=== PATIENT | female | born 1950 | race Caucasian/White ===

== ENCOUNTER 2017-11-18 09:49 | Inpatient (IN) ==
[2017-11-18] MEDS ORDERED: Isovue-370 500 ML INFUS..BTL IV ONE (10:16)
[2017-11-18] MEDS ORDERED: Furosemide 20 MG/2 ML VIAL IVP ONE ×2 (10:17→11:05)
--- NOTE | 2017-11-18 10:22 | Emergency Department Note ---
Disposition Clinical Impression: Pulmonary embolism Qualifiers: Pulmonary embolism type: other Chronicity: acute Acute cor pulmonale presence: without acute cor pulmonale Qualified Code(s): I26.99 - Other pulmonary embolism without acute cor pulmonale Disposition: Admitted As Inpatient Condition: Serious Referrals: Opal Bolden MD [Primary Care Provider] - Forms: ED Satisfaction Letter SOB HPI - General Chief Complaint: ED Shortness of Breath/Dyspnea Stated Complaint: SEB/BLE edema Time Seen by Provider: 11/18/17 09:55 Source: patient, EMS Mode of arrival: EMS Limitations: no limitations Nursing Notes Reviewed: Yes Vital Signs Reviewed: Yes - History of Present Illness Pt Subjective Complaint: shortness of breath Onset (ago): day(s) (yesterday) Severity: moderate Consistency/Duration: intermittent Improves with: rest Worsens with: exertion Known history of: PE, DVT Associated symptoms: Reports: cough (occasional, dry). Denies: chest pain, pain with inspiration, fever, wheezing, sputum production, orthopnea, lower extremity pain, polyuria, polydipsia, parasthesias, palpitations, hemoptysis, diaphoresis, nausea/vomiting, syncope, abdominal pain, rash, sense of impending doom Treatment prior to arrival: none Cough present: Yes Cough Description: Involuntary, Non-Productive, Dry Cough Frequency: Intermittent Sputum production: No Sputum Amount: None - Related Data Home oxygen amount: none Home Medications Medication Instructions Recorded Confirmed traZODone [TraZODone] 50 mg PO HS 07/24/15 12/23/16 Furosemide [Lasix] 40 mg PO DAILY 08/16/15 12/23/16 Potassium Chloride [K-Tab ER] 20 meq PO BID 11/14/15 12/23/16 Albuterol Sulfate [Albuterol 1 puff IH PRN PRN 02/14/16 12/23/16 Inhaler] Ranitidine HCl 150 mg PO DAILY 05/13/16 12/23/16 Aspirin Enteric Coated [Aspirin EC] 81 mg PO DAILY 06/24/16 12/23/16 Biotin 3 mg PO DAILY 11/18/17 11/18/17 Glucosamine Sulfate Dipot Chlr 2,000 mg PO DAILY 11/18/17 11/18/17 [Glucosamine] Losartan Potassium [Cozaar] 100 mg PO DAILY 11/18/17 11/18/17 Magnesium Oxide [Magnesium] 400 mg PO DAILY 11/18/17 11/18/17 Meloxicam [Meloxicam] 7.5 mg PO DAILY 11/18/17 11/18/17 Multivitamin [One Daily Essential] 1 tab PO DAILY 11/18/17 11/18/17 Tramadol HCl [Ultram] 50 mg PO HS PRN 11/18/17 11/18/17 Allergies Allergy/AdvReac Type Severity Reaction Status Date / Time lisinopril Allergy Unknown Cough Verified 11/18/17 11:28 codeine Allergy Hallucinati Verified 11/18/17 11:28 ng Penicillins Allergy Hallucinati Verified 11/18/17 11:28 ng amlodipine AdvReac See Verified 11/18/17 11:28 Comments All systems ED: reviewed and negative except as stated. Review of Systems: As Per HPI Constitutional: Denies: fever, chills, weakness Cardiovascular: Reports: dyspnea on exertion, orthopnea. Denies: chest pain, palpitations, edema, syncope Respiratory: Reports: as per HPI, cough. Denies: dyspnea, wheezes, hemoptysis, stridor, sputum production Gastrointestinal: Denies: abdominal pain, nausea, vomiting, diarrhea Genitourinary: Denies: urgency, dysuria, frequency, hematuria Musculoskeletal: Denies: back pain, neck pain, joint swelling, arthralgia, myalgia Integumentary: Denies: rash Neurological: Denies: headache, weakness, confusion Hematological/Lymphatic: Denies: easy bleeding, easy bruising, lymphadenopathy Past Medical History - Past Medical History Attestation: Yes The following information was validated with the patient. Source: patient Medical history: Reports: cancer, CHF, DVT, GERD, hypertension, pulmonary embolus, other Surgical history: Reports: hysterectomy Psychiatric history: Reports: no psych history DIE ENGRAVER history: Reports: no DIE ENGRAVER history - Social History Smoking Status: Never smoker Smokeless Tobacco Status: No Alcohol use: Reports: none Drug use: Reports: none Physical Exam - General Limitations: no limitations General appearance: alert, in no apparent distress - Head Head exam: atraumatic, normocephalic, normal inspection - Eye Eye exam: Present: normal appearance, PERRL. Absent: scleral icterus, conjunctival injection, periorbital swelling - ENT ENT exam: normal oropharynx, mucous membranes moist - Neck Neck exam: Present: normal inspection, full ROM, trachea midline. Absent: tenderness, meningismus, lymphadenopathy - Chest Chest inspection: Present: normal inspection, symmetric chest wall rise. Absent : tenderness - Respiratory Respiratory exam: Present: normal lung sounds bilaterally. Absent: respiratory distress, wheezes, stridor, accessory muscle use - Cardiovascular Cardiovascular exam: Present: regular rate, normal rhythm. Absent: systolic murmur, diastolic murmur - Extremities Exam Extremities exam: Present: normal capillary refill, pedal edema (2+ non- pitting. Bilat feet to mid mg.). Absent: tenderness, calf tenderness - Back Exam Back exam: Present: normal inspection, full ROM. Absent: tenderness - Neurological Exam Neurological exam: Present: alert, oriented X3, CN II-XII intact, normal gait - Psychiatric Psychiatric exam: Present: normal affect, normal mood - Skin Skin exam: Present: warm, dry, intact, normal color Course Course Narrative: Patient presents for evaluation of dyspnea on exertion. She describes feeling very short of breath with simple tasks such as getting dressed. This started yesterday and has gotten progressively worse. She denies fever, chills, nausea , vomiting. She denies pain, palpitations, syncope, dizziness, vertigo, hemoptysis. She has had an occasional dry cough. She has a history of COPD, coronary artery disease, CHF, she has a pacemaker and she had a PE and right upper extremity DVT last year. She was seen by [facility] and had a battery of tests done. No cause for the blood clots was identified, so the Xarelto was discontinued about six months ago. On exam, patient appears mildly anxious. She is tachypnea, afebrile with normal blood pressure, normal pulse. She is satting 96% on 2 L by nasal cannula. Breath sounds are clear bilaterally. Heart rate and rhythm are regular. I do not hear murmur. She has symmetric lower extremity nonpitting edema with faint erythema to the right lower leg and ankle. It is nontender. She has no calf pain, swelling, erythema or tenderness bilaterally. EKG, labs and CT have been ordered given the patient's previous history of PE. EKG shows a paced rhythm with normal rate. No significant change compared to previous. Chest x-ray was read by the radiologist as no acute abnormality. Labs show an elevated troponin at 0.06. She has had an elevated troponin in the past - as high as 0.06. Creatinine is normal. Glucose is mildly elevated. CBC is normal. Coags are normal. CTA is pending - Reevaluation(s) Reevaluation #1: Patient ambulated to and from rest room. Feels short of breath and "wants a breathing treatment". This has been ordered. Cr resulted now and is normal. Additional Lasix ordered. Still no pain. Waiting for CTA. Suspect CHF or PE. Less likely pneumonia or COPD - no wheezing Time: 11:26 - Consultations Consultation #1: Case discussed with Dr. Ha, radiologist. Patient has bilateral pulmonary emboli. Heparin has been ordered. Case discussed with Dr. Novoa she has had [id number] time with the patient and agrees with the assessment and plan. Time: 12:27 Consultation #2: Case discussed with Dr. Espinal, the hospitalist. She requests that the clay processing labourer be contacted for consult. The clay processing labourer has been paged. Time: 12:49 Vital Signs Temperature 97.1 F L 11/18/17 09:53 Pulse Rate 89 11/18/17 09:53 Respiratory Rate 18 11/18/17 09:53 Blood Pressure 151/81 11/18/17 09:53 O2 Sat by Pulse Oximetry 96 11/18/17 09:53 Temperature 97.1 F L 11/18/17 09:53 Pulse Rate 89 11/18/17 09:53 Respiratory Rate 18 11/18/17 09:53 Blood Pressure 151/81 11/18/17 09:53 O2 Sat by Pulse Oximetry 96 11/18/17 09:53 Oxygen Delivery Oxygen Delivery Nasal Cannula Shortness of Breath/Dyspnea - Medical Records Medical records reviewed: Yes I reviewed the patient's medical records. - Lab Data Lab results reviewed: Yes I reviewed the patient's lab results. Lab results narrative: Laboratory Last Values WBC 8.9 K/mcL (4.3-11.1) 11/18/17 10:16 RBC 4.79 M/mcL (3.82-4.97) 11/18/17 10:16 Hgb 14.7 g/dL (11.5-15.4) 11/18/17 10:16 Hct 45.7 % (35.3-44.9) H 11/18/17 10:16 MCV 95.4 fL (83.0-100.0) 11/18/17 10:16 MCH 30.7 pg (28.0-33.3) 11/18/17 10:16 MCHC 32.2 g/dL (31.6-35.5) 11/18/17 10:16 RDW 13.6 % (11.5-14.5) 11/18/17 10:16 Plt Count 206 K/mcL (140-400) 11/18/17 10:16 MPV 10.6 fL (9.4-12.4) 11/18/17 10:16 Immature Gran % 0.3 % (0-4) 11/18/17 10:16 Seg Neutrophils % 73.3 % 11/18/17 10:16 Lymphocytes % 17.7 % 11/18/17 10:16 Monocytes % 7.7 % 11/18/17 10:16 Eosinophils % 0.7 % 11/18/17 10:16 Basophils % 0.3 % 11/18/17 10:16 Neutrophils # 6.5 K/mcL (1.6-8.9) 11/18/17 10:16 Lymphocytes # 1.6 K/mcL (0.6-4.6) 11/18/17 10:16 Monocytes # 0.7 K/mcL (0.0-1.3) 11/18/17 10:16 Eosinophils # 0.1 K/mcL (0.0-0.6) 11/18/17 10:16 Basophils # 0.0 K/mcL (0.0-0.2) 11/18/17 10:16 Sodium 142 mEq/L (136-145) 11/18/17 10:16 Potassium 4.5 mEq/L (3.5-5.1) 11/18/17 10:16 Chloride 105 mEq/L (98-107) 11/18/17 10:16 Carbon Dioxide 27 mEq/L (23-29) 11/18/17 10:16 BUN 20 mg/dL (8-23) 11/18/17 10:16 Creatinine 0.71 mg/dL (0.60-1.20) 11/18/17 10:16 Est GFR ( Amer) > 60 (> 60) 11/18/17 10:16 Est GFR (Non-Af Amer) > 60 (> 60) 11/18/17 10:16 BUN/Creatinine Ratio 28 (6-26) H 11/18/17 10:16 Glucose 115 mg/dL (70-105) H 11/18/17 10:16 Calculated Osmolality 298 (280-300) 11/18/17 10:16 Calcium 9.1 mg/dL (8.6-10.3) 11/18/17 10:16 Total Bilirubin 0.5 mg/dL (0.3-1.0) 11/18/17 10:16 Direct Bilirubin 0.1 mg/dL (0.0-0.2) 11/18/17 10:16 Indirect Bilirubin 0.4 mg/dL (0.0-1.2) 11/18/17 10:16 AST 14 Units/L (13-39) 11/18/17 10:16 ALT 11 Units/L (7-52) 11/18/17 10:16 Alkaline Phosphatase 97 Units/L (34-104) 11/18/17 10:16 Troponin I 0.06 ng/mL (< 0.04) H* 11/18/17 10:16 B-Natriuretic Peptide 217 pg/mL (Less than 100) H 11/18/17 10:16 Serum Total Protein 7.2 g/dL (6.4-8.9) 11/18/17 10:16 Albumin 4.1 g/dL (3.5-5.7) 11/18/17 10:16 Globulin 3.1 g/dL (2.4-3.5) 11/18/17 10:16 Albumin/Globulin Ratio 1.3 (1.1-2.2) 11/18/17 10:16 Result diagrams: 11/18/17 10:16 11/18/17 10:16 Lab Results 11/18/17 11/18/17 11/18/17 Range/Units 10:16 10:16 10:16 WBC 8.9 (4.3-11.1) K/mcL RBC 4.79 (3.82-4.97) M/mcL Hgb 14.7 (11.5-15.4) g/dL Hct 45.7 H (35.3-44.9) % MCV 95.4 (83.0-100.0) fL MCH 30.7 (28.0-33.3) pg MCHC 32.2 (31.6-35.5) g/dL RDW 13.6 (11.5-14.5) % Plt Count 206 (140-400) K/mcL MPV 10.6 (9.4-12.4) fL Immature Gran % 0.3 (0-4) % Seg Neutrophils % 73.3 % Lymphocytes % 17.7 % Monocytes % 7.7 % Eosinophils % 0.7 % Basophils % 0.3 % Neutrophils # 6.5 (1.6-8.9) K/mcL Lymphocytes # 1.6 (0.6-4.6) K/mcL Monocytes # 0.7 (0.0-1.3) K/mcL Eosinophils # 0.1 (0.0-0.6) K/mcL Basophils # 0.0 (0.0-0.2) K/mcL Sodium 142 (136-145) mEq/L Potassium 4.5 (3.5-5.1) mEq/L Chloride 105 (98-107) mEq/L Carbon Dioxide 27 (23-29) mEq/L BUN 20 (8-23) mg/dL Creatinine 0.71 (0.60-1.20) mg/dL Est GFR ( Amer) > 60 (> 60) Est GFR (Non-Af Amer) > 60 (> 60) BUN/Creatinine Ratio 28 H (6-26) Glucose 115 H (70-105) mg/dL Calculated Osmolality 298 (280-300) Calcium 9.1 (8.6-10.3) mg/dL Total Bilirubin 0.5 (0.3-1.0) mg/dL Direct Bilirubin 0.1 (0.0-0.2) mg/dL Indirect Bilirubin 0.4 (0.0-1.2) mg/dL AST 14 (13-39) Units/L ALT 11 (7-52) Units/L Alkaline Phosphatase 97 (34-104) Units/L Troponin I 0.06 H* (< 0.04) ng/mL B-Natriuretic Peptide 217 H (Less than 100) pg/mL Serum Total Protein 7.2 (6.4-8.9) g/dL Albumin 4.1 (3.5-5.7) g/dL Globulin 3.1 (2.4-3.5) g/dL Albumin/Globulin Ratio 1.3 (1.1-2.2) - Radiology Data Radiology results reviewed: Yes I reviewed the patient's radiology results. Chest X-Ray 11/18/17 10:08 IMPRESSION: No evidence of acute cardiopulmonary disease. D/ / Harsha Padron MD / Harsha Padron MD Interpreting Provider: Harsha Padron MD Chest CTA 11/18/17 10:16 IMPRESSION: Bilateral pulmonary emboli with evidence for right ventricular strain. Findings were discussed with Jacklyn Garcia at 12:25 pm on 11/18/2017. D/ / Kristian Rojas MD / Kristian Rojas MD Interpreting Provider: Kristian Rojas MD - EKG Data EKG attestation: Yes I reviewed and interpreted this EKG. EKG results narrative: Paced rhythm, normal rate. Rate: Reports: normal Critical Care Time Critical Care Time: Yes Total Critical Care Time: 30 Attestation: Patient experienced dyspnea and dyspnea on exertion. She was tachypneic and hypoxic with minimal exertion. EKG shows a paced rhythm. IV access was obtained. CTA was performed patient has bilateral pulmonary emboli. Heparin drip was started. Pulmonology was consulted. Patient accepted by the hospitalist to the stepdown floor.
[2017-11-18 10:27] LABS: Basophils % 0.3 %; Eosinophils # 0.1 K/mcL (0.0-0.6); Eosinophils % 0.7 %; Hematocrit 45.7 % (35.3-44.9); Hemoglobin 14.7 g/dL (11.5-15.4); Immature Granulocytes % 0.3 % (0-4); Lymphocytes # 1.6 K/mcL (0.6-4.6); Lymphocytes % 17.7 %; Mean Corpuscular HGB Conc 32.2 g/dL (31.6-35.5); Mean Corpuscular Hemoglobin 30.7 pg (28.0-33.3); Mean Corpuscular Volume 95.4 fL (83.0-100.0); Mean Platelet Volume 10.6 fL (9.4-12.4); Monocytes # 0.7 K/mcL (0.0-1.3); Monocytes % 7.7 %; Neutrophils # 6.5 K/mcL (1.6-8.9); Platelet Count 206 K/mcL (140-400); Red Blood Count 4.79 M/mcL (3.82-4.97); Red Cell Distribution Width 13.6 % (11.5-14.5); Segmented Neutrophils % 73.3 %
[2017-11-18 10:53] LABS: Alanine Aminotransferase 11 Units/L (7-52); Albumin 4.1 g/dL (3.5-5.7); Albumin/Globulin Ratio 1.3 (1.1-2.2); Alkaline Phosphatase 97 Units/L (34-104); Aspartate Amino Transferase 14 Units/L (13-39); BUN/Creatinine Ratio 28 (6-26); Bilirubin,Direct 0.1 mg/dL (0.0-0.2); Bilirubin,Indirect 0.4 mg/dL (0.0-1.2); Bilirubin,Total 0.5 mg/dL (0.3-1.0); Blood Urea Nitrogen 20 mg/dL (8-23); Calcium 9.1 mg/dL (8.6-10.3); Carbon Dioxide 27 mEq/L (23-29); Chloride 105 mEq/L (98-107); Globulin 3.1 g/dL (2.4-3.5); Glucose 115 mg/dL (70-105); Osmolality,Calculated 298 (280-300); Potassium 4.5 mEq/L (3.5-5.1); Sodium 142 mEq/L (136-145); Total Protein 7.2 g/dL (6.4-8.9); eGFR For African Americans > 60 (> 60); eGFR For Non-African Americans > 60 (> 60)
[2017-11-18 10:55] LABS: Troponin I 0.06 ng/mL (< 0.04)
[2017-11-18] MEDS ORDERED: Aspirin 325 MG TABLET PO ONE (11:05)
[2017-11-18] MEDS ORDERED: Ipratropium/Albuterol Neb 3 ML IH ONE (11:05)
[2017-11-18] MEDS ORDERED: *HR* Heparin 5,000 UNIT/ML VIAL IVP ONE (12:25)
[2017-11-18] MEDS ORDERED: *HR* Heparin 5,000 UNIT/ML VIAL IVP PRN ×2 (12:25)
--- NOTE | 2017-11-18 12:31 | Electrocardiograph Report ---
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
--- NOTE | 2017-11-18 12:52 | Emergency Department Note ---
Disposition Clinical Impression: Pulmonary embolism Qualifiers: Pulmonary embolism type: other Chronicity: acute Acute cor pulmonale presence: without acute cor pulmonale Qualified Code(s): I26.99 - Other pulmonary embolism without acute cor pulmonale Disposition: Admitted As Inpatient Condition: Fair Referrals: Opal Bolden MD [Primary Care Provider] - Forms: ED Satisfaction Letter General Adult HPI - General Chief complaint: ED Shortness of Breath/Dyspnea Stated complaint: SEB/BLE edema Time Seen by Provider: 11/18/17 09:55 Source: patient, EMS Mode of arrival: EMS Limitations: no limitations - History of Present Illness Pain Scale: 0 - Related Data Home Medications Medication Instructions Recorded Confirmed traZODone [TraZODone] 50 mg PO HS 07/24/15 11/18/17 Furosemide [Lasix] 40 mg PO DAILY PRN 08/16/15 11/18/17 Potassium Chloride [K-Tab ER] 20 meq PO BID PRN 11/14/15 11/18/17 Albuterol Sulfate [Albuterol 1 puff IH PRN PRN 02/14/16 11/18/17 Inhaler] Ranitidine HCl [Acid Death Claim Clerk] 150 mg PO DAILY 05/13/16 11/18/17 Aspirin Enteric Coated [Aspirin EC] 81 mg PO DAILY 06/24/16 11/18/17 Biotin 3 mg PO DAILY 11/18/17 11/18/17 Glucosamine Sulfate Dipot Chlr 2,000 mg PO DAILY 11/18/17 11/18/17 [Glucosamine] Losartan Potassium [Cozaar] 100 mg PO DAILY 11/18/17 11/18/17 Magnesium Oxide [Magnesium] 400 mg PO DAILY 11/18/17 11/18/17 Meloxicam [Meloxicam] 7.5 mg PO DAILY 11/18/17 11/18/17 Multivitamin [One Daily Essential] 1 tab PO DAILY 11/18/17 11/18/17 Tramadol HCl [Ultram] 50 mg PO HS PRN 11/18/17 11/18/17 Allergies Allergy/AdvReac Type Severity Reaction Status Date / Time lisinopril Allergy Unknown Cough Verified 11/18/17 11:28 codeine Allergy Hallucinati Verified 11/18/17 11:28 ng Penicillins Allergy Hallucinati Verified 11/18/17 11:28 ng amlodipine AdvReac See Verified 11/18/17 11:28 Comments Constitutional: Denies: fever, chills, weakness Cardiovascular: Reports: dyspnea on exertion, orthopnea. Denies: chest pain, palpitations, edema, syncope Respiratory: Reports: as per HPI, cough. Denies: dyspnea, wheezes, hemoptysis, stridor, sputum production Gastrointestinal: Denies: abdominal pain, nausea, vomiting, diarrhea Genitourinary: Denies: urgency, dysuria, frequency, hematuria Musculoskeletal: Denies: back pain, neck pain, joint swelling, arthralgia, myalgia Integumentary: Denies: rash Neurological: Denies: headache, weakness, confusion Hematological/Lymphatic: Denies: easy bleeding, easy bruising, lymphadenopathy Past Medical History - Past Medical History Medical history: Reports: cancer, CHF, DVT, GERD, hypertension, pulmonary embolus, other Surgical history: Reports: hysterectomy Psychiatric history: Reports: no psych history OPTICAL EFFECTS LAYOUT PERSON history: Reports: no OPTICAL EFFECTS LAYOUT PERSON history - Social History Smoking Status: Never smoker Smokeless Tobacco Status: No Alcohol use: Reports: none Drug use: Reports: none Physical Exam - General Limitations: no limitations General appearance: alert, in no apparent distress Course Vital Signs Temperature 97.1 F L 11/18/17 09:53 Pulse Rate 89 11/18/17 09:53 Respiratory Rate 18 11/18/17 09:53 Blood Pressure 151/81 11/18/17 09:53 O2 Sat by Pulse Oximetry 96 11/18/17 09:53 Temperature 97.1 F L 11/18/17 09:53 Pulse Rate 89 11/18/17 09:53 Respiratory Rate 18 11/18/17 09:53 Blood Pressure 151/81 11/18/17 09:53 O2 Sat by Pulse Oximetry 96 11/18/17 09:53 Oxygen Delivery Oxygen Delivery Nasal Cannula Medical Decision Making - Lab Data Result diagrams: 11/18/17 10:16 11/18/17 10:16 Lab Results 11/18/17 11/18/17 11/18/17 Range/Units 10:16 10:16 10:16 WBC 8.9 (4.3-11.1) K/mcL RBC 4.79 (3.82-4.97) M/mcL Hgb 14.7 (11.5-15.4) g/dL Hct 45.7 H (35.3-44.9) % MCV 95.4 (83.0-100.0) fL MCH 30.7 (28.0-33.3) pg MCHC 32.2 (31.6-35.5) g/dL RDW 13.6 (11.5-14.5) % Plt Count 206 (140-400) K/mcL MPV 10.6 (9.4-12.4) fL Immature Gran % 0.3 (0-4) % Seg Neutrophils % 73.3 % Lymphocytes % 17.7 % Monocytes % 7.7 % Eosinophils % 0.7 % Basophils % 0.3 % Neutrophils # 6.5 (1.6-8.9) K/mcL Lymphocytes # 1.6 (0.6-4.6) K/mcL Monocytes # 0.7 (0.0-1.3) K/mcL Eosinophils # 0.1 (0.0-0.6) K/mcL Basophils # 0.0 (0.0-0.2) K/mcL Sodium 142 (136-145) mEq/L Potassium 4.5 (3.5-5.1) mEq/L Chloride 105 (98-107) mEq/L Carbon Dioxide 27 (23-29) mEq/L BUN 20 (8-23) mg/dL Creatinine 0.71 (0.60-1.20) mg/dL Est GFR ( Amer) > 60 (> 60) Est GFR (Non-Af Amer) > 60 (> 60) BUN/Creatinine Ratio 28 H (6-26) Glucose 115 H (70-105) mg/dL Calculated Osmolality 298 (280-300) Calcium 9.1 (8.6-10.3) mg/dL Total Bilirubin 0.5 (0.3-1.0) mg/dL Direct Bilirubin 0.1 (0.0-0.2) mg/dL Indirect Bilirubin 0.4 (0.0-1.2) mg/dL AST 14 (13-39) Units/L ALT 11 (7-52) Units/L Alkaline Phosphatase 97 (34-104) Units/L Troponin I 0.06 H* (< 0.04) ng/mL B-Natriuretic Peptide 217 H (Less than 100) pg/mL Serum Total Protein 7.2 (6.4-8.9) g/dL Albumin 4.1 (3.5-5.7) g/dL Globulin 3.1 (2.4-3.5) g/dL Albumin/Globulin Ratio 1.3 (1.1-2.2) Attestation Statement - Attestation Attestation: I examined this patient and my medical decision-making was reviewed with the Resident Physician. I agree with the documented findings, disposition and treatment plan as described except to the extent set forth below. 67 year old female prsents eto the ED with history of PEs and has been recently taken off her xarelto therapy. PRsents today with S1Q3T3 in addition to dyspnea without hypoxia. It appears she has biltaeral PEs again with right heart strain. WE will admit to medicine
--- NOTE | 2017-11-18 13:00 | Pulmonology Consult Note ---
Date of Encounter: 11/18/17 Time of Encounter: 13:00 Assessment and Plan (1) Acute pulmonary embolism Current Visit: Yes Status: Acute Impression: In conclusion this is a 67-year-old woman with a past medical history of uterine cancer and the venous thromboembolism. She also has been diagnosed with heart failure with preserved ejection fraction. She presents with the progressive dyspnea found to have bilateral pulmonary emboli. I reviewed her CT scan findings which is notable for extensive clot burden with enlarged right ventricle on CT imaging. Although this is concerning for acute cor pulmonale the patient is hemodynamically stable and only requiring low amounts of FiO2 support via nasal cannula. She does have a very modestly elevated troponin; and elevated BNP although this is been noted on prior admissions. Her PESI score is >125 which puts her at a high risk group for mortality and will need close monitoring on the inpatient medicine service given potential risk for further decompensation it is reasonable and safe for further monitoring on the stepdown unit overnight and if stabilized can be transferred to the general medical floor with telemetry subsequently. Overall category would be submassive PE hemodynamically stable no indication for thrombolysis pending echo evaluation. Recs: Wean FiO2 to keep oxygen saturation around 92-94%. Although clinically stable at this time I would caution that if worsening hypoxemia the use of positive airway pressure in this situation can precipitate further decrease in preload and right heart strain recommend high flow oxygen as an alternative Agree with high intensity heparin infusion for acute pulmonary embolus. I will defer to the primary medicine service/pharmacy for monitoring of therapeutic indices Trend troponin every 6 hours Obtain 2D ECHO to further characterize right heart strain. Given hemodynamic stability no indication for systemic thrombolytic. She could potentially be a candidate for catheter directed thrombolysis if significant evidence of right heart strain on echocardiogram. However patient would have to be transferred to a tertiary referrals Center for consideration of this clinically I do not think that this will be necessary based upon her stability at this time. I would avoid overly aggressive diuresis or volume resuscitation at this time. Goal volume status should be even the slightly net negative that is no more than -500 mL. I suspect by tomorrow we can increase her diuretic dosing to help with hydrostatic pulmonary edema from known heart failure with preserved ejection fraction Avoid niya blocking agents acutely if any evidence of tachycardia Recommend obtaining ultrasound of the bilateral lower extremities to evaluate for DVT. Although this would not change current management if patient decompensates further IVC filter could be considered to avoid submassive PE transition to massive PE if DVT present I will defer to oncology regarding final recommendations for anticoagulation but she has done well on Xarelto in the past and can likely be transitioned to this oral anticoagulant upon discharge. Formal consultation with oncology is warranted Given chronicity and multiple recurrence of venous thromboembolism I recommend lifelong anticoagulation would defer to oncology for final recommendations. Thank you for this consultation pulmonary will continue to follow Qualifiers: Pulmonary embolism type: other Acute cor pulmonale presence: without acute cor pulmonale Qualified Code(s): I26.99 - Other pulmonary embolism without acute cor pulmonale (2) Acute respiratory failure with hypoxia Current Visit: Yes Status: Acute (3) (HFpEF) heart failure with preserved ejection fraction Current Visit: Yes Status: Acute History of Present Illness Consult date: 11/18/17 Requesting physician: Jacklyn Garcia Reason for consult: pulmonary embolism Chief complaint: Difficulty in Breathing History of present illness: The patient is a very pleasant 67-year-old woman with a past medical history of venous thromboembolism including pulmonary embolus and deep vein thrombosis of the upper extremity. She also has a history of congestive heart failure she has a pacemaker for bradycardia and a remote history of uterine cancer. She denies any history of respiratory diseases and is a lifelong nonsmoker. She presented to the emergency department today for worsening shortness of breath. She states that over the last 2 days she has been increasingly dyspneic with any modest activity. Infection was so worried about her breathing and felt so dyspneic that she she was afraid to lay down to go to sleep. She is also noticed some increasing lower extremity edema but she states that really this has not been too much different than her baseline. No recent history of immobilization or travel. She denies hemoptysis. She is not currently taking any anticoagulation it was stopped by her institutional research coordinator after an extensive workup for thrombophilia.. She denies syncope nausea vomiting diarrhea abdominal pain bleeding or chest pain. In the emergency department the patient was noted to be hypoxic she was paced rhythm but some features consistent with a classic [id number] ECG findings prompting a CTA which was positive for bilateral PEs she is currently on heparin infusion. She is hemodynamically stable but had CTA findings suggestive of right heart strain. She is being admitted to the medicine service and the admitting hospitalist recommended my consultation for further management of acute pulmonary embolus with concern for right heart strain. She is currently hemodynamically stable with saturation in the high 90s on 3 L nasal cannula and is otherwise in no respiratory distress Past Med Surg Social Fam HX - Past Medical History Medical history: cancer, CHF, DVT, GERD, hypertension, pulmonary embolus, other Psychiatric history: no psych history - Past Surgical History Surgical History: hysterectomy - Social History Smoking Status: Never smoker Smokeless Tobacco Status: No Alcohol use: none Drug use: none - Family History Mother Living Status: Still Living Hx Family Cardiac Disorders: Yes (A-Fib, Pacemaker) Father Living Status: Hx Family Cardiac Disorders: No Hx Family Respiratory Disorders: Yes Hx Family Cancer: Yes Hx Family Endocrine Disorder: Yes Medications and Allergies traZODone [TraZODone] 50 mg PO HS 07/24/15 [History] Furosemide [Lasix] 40 mg PO DAILY PRN 08/16/15 [History] Potassium Chloride [K-Tab ER] 20 meq PO BID PRN 11/14/15 [History] Albuterol Sulfate [Albuterol Inhaler] 1 puff IH PRN PRN 02/14/16 [History] Ranitidine HCl [Acid Burr Sander] 150 mg PO DAILY 05/13/16 [History] Aspirin Enteric Coated [Aspirin EC] 81 mg PO DAILY 06/24/16 [History] Biotin 3 mg PO DAILY 11/18/17 [History] Glucosamine Sulfate Dipot Chlr [Glucosamine] 2,000 mg PO DAILY 11/18/17 [History ] Losartan Potassium [Cozaar] 100 mg PO DAILY 11/18/17 [History] Magnesium Oxide [Magnesium] 400 mg PO DAILY 11/18/17 [History] Meloxicam [Meloxicam] 7.5 mg PO DAILY 11/18/17 [History] Multivitamin [One Daily Essential] 1 tab PO DAILY 11/18/17 [History] Tramadol HCl [Ultram] 50 mg PO HS PRN 11/18/17 [History] 3 Allergy/AdvReac Type Severity Reaction Status Date / Time lisinopril Allergy Unknown Cough Verified 11/18/17 11:28 codeine Allergy Hallucinati Verified 11/18/17 11:28 ng Penicillins Allergy Hallucinati Verified 11/18/17 11:28 ng amlodipine AdvReac See Verified 11/18/17 11:28 Comments All Systems: The remainder of the systems were reviewed and are negative Physical Examination Vital Signs: Vital Signs, Last 4 Hours Temp Pulse Resp BP Pulse Ox 11/18/17 09:53 97.1 F L 89 18 151/81 96 General appearance: no acute distress Eyes: nonicteric ENT: oropharynx moist Effort: mildly labored Auscultation: bilateral: rales Cardiovascular: regular rate and rhythm Gastrointestinal: normoactive bowel sounds, soft, non-tender Integumentary: normal Extremities: no cyanosis, no edema, no clubbing Musculoskeletal: no deformities normal mental status, non-focal exam mood appropriate Results - Laboratory Findings CBC and BMP: 11/18/17 10:16 11/18/17 10:16 Abnormal lab findings: Abnormal lab results Hct 45.7 % (35.3-44.9) H 11/18/17 10:16 BUN/Creatinine Ratio 28 (6-26) H 11/18/17 10:16 Glucose 115 mg/dL (70-105) H 11/18/17 10:16 Troponin I 0.06 ng/mL (< 0.04) H* 11/18/17 10:16 B-Natriuretic Peptide 217 pg/mL (Less than 100) H 11/18/17 10:16 - Diagnostic Findings Chest x-ray: report reviewed, image reviewed CT scan - chest: report reviewed, image reviewed - Clinical Findings Intake & Output: Intake & Output 11/17/17 11/18/17 11/18/17 23:59 07:59 15:59 Weight 136.078 kg Consult Discharge Plan - Plan Referrals: Opal Bolden MD [Primary Care Provider] -
[2017-11-18 13:22] LABS: INR 1.1; Prothrombin Time 12.3 Seconds (9.4-12.1)
[2017-11-18 13:25] LABS: Activated Partial Thrombo Time 28.1 Seconds (26.0-36.0)
[2017-11-18] MEDS ORDERED: traMADol 50 MG TABLET PO PRN ×2 (13:55→13:57)
[2017-11-18] MEDS ORDERED: Naloxone 0.4 MG/ML INJ IVP PRN (13:57)
[2017-11-18] MEDS ORDERED: Acetaminophen 325 MG TABLET PO PRN (13:57)
[2017-11-18] MEDS: Heparin 25,000 UNIT/500 ML D5W 25,000 UNIT/500 ML BAG IVC SCH (13:59)
--- NOTE | 2017-11-18 14:13 | Internal Med History&Physical ---
<Abigail Watkins - Last Filed: 11/18/17 14:06> Date of Encounter: 11/18/17 Time of Encounter: 14:06 Internal Medicine - H&P: HPI Admitted From: Home Plans for Post Hospital Care: Home History of present illness: Ms. Cai is a 67 year old female 's past medical history of VT/PE, uterine cancer, bradycardia status post pacemaker placement, CHF, and hypertension presented to the ED with 2 days of worsening shortness of breath. She reported in past 2 days, she experienced progressive shortness of breath, she denies any associated chest pain, cough, hematemesis, or palpitation. He also noticed bilateral leg swelling but she also said she has chronic lymphedema on both legs. She does not have any recent history of long distance traveling or immobilization. She had a history of PE/DVT in the past, and underwent extensive hematological workup by oncology. He was on Zaroxolyn in the past, which was discontinued by oncology about 6-9 months ago. At the ED, her vital signs were stable, labs revealed elevated troponin, CTA showed bilateral PE, she will be admitted as inpatient for further management. Past Med Surg Social Fam HX - Past Medical History Medical history: cancer, CHF, DVT, GERD, hypertension, pulmonary embolus, other Psychiatric history: no psych history - Past Surgical History Surgical History: hysterectomy - Social History Smoking Status: Never smoker Smokeless Tobacco Status: No Alcohol use: none Drug use: none - Family History Mother Living Status: Still Living Hx Family Cardiac Disorders: Yes (A-Fib, Pacemaker) Father Living Status: Hx Family Cardiac Disorders: No Hx Family Respiratory Disorders: Yes Hx Family Cancer: Yes Hx Family Endocrine Disorder: Yes Internal Medicine - H&P: Meds traZODone [TraZODone] 50 mg PO HS 07/24/15 [History] Furosemide [Lasix] 40 mg PO DAILY PRN 08/16/15 [History] Potassium Chloride [K-Tab ER] 20 meq PO BID PRN 11/14/15 [History] Albuterol Sulfate [Albuterol Inhaler] 1 puff IH PRN PRN 02/14/16 [History] Ranitidine HCl [Acid Lead Sustainability Specialist] 150 mg PO DAILY 05/13/16 [History] Aspirin Enteric Coated [Aspirin EC] 81 mg PO DAILY 12/21/16 [History] Biotin 3 mg PO DAILY 11/18/17 [History] Glucosamine Sulfate Dipot Chlr [Glucosamine] 2,000 mg PO DAILY 11/18/17 [History ] Losartan Potassium [Cozaar] 100 mg PO DAILY 11/18/17 [History] Magnesium Oxide [Magnesium] 400 mg PO DAILY 11/18/17 [History] Meloxicam [Meloxicam] 7.5 mg PO DAILY 11/18/17 [History] Multivitamin [One Daily Essential] 1 tab PO DAILY 11/18/17 [History] Tramadol HCl [Ultram] 50 mg PO HS PRN 11/18/17 [History] 3 Allergy/AdvReac Type Severity Reaction Status Date / Time lisinopril Allergy Unknown Cough Verified 11/18/17 11:28 codeine Allergy Hallucinati Verified 11/18/17 11:28 ng Penicillins Allergy Hallucinati Verified 11/18/17 11:28 ng amlodipine AdvReac See Verified 11/18/17 11:28 Comments All Systems PM: A 10-system review of systems was performed and is negative for pertinent findings except as documented above in the HPI. Review of systems: REVIEW OF SYSTEMS: CONSTITUTIONAL: No weight loss, fever, chills, weakness or fatigue. HEENT: Eyes: No visual loss, blurred vision, double vision or yellow sclerae. Ears, Nose, Throat: No hearing loss, sneezing, congestion, runny nose or sore throat. SKIN: No rash or itching. CARDIOVASCULAR: see HPI. RESPIRATORY: No shortness of breath, cough or sputum. GASTROINTESTINAL: No anorexia, nausea, vomiting or diarrhea. No abdominal pain or blood. GENITOURINARY: No dysuria, urgency, or frequency. NEUROLOGICAL: No headache, dizziness, syncope, paralysis, ataxia, numbness or tingling in the extremities. No change in bowel or bladder control. MUSCULOSKELETAL: No muscle, back pain, joint pain or stiffness. HEMATOLOGIC: No anemia, bleeding or bruising. LYMPHATICS: No enlarged nodes. No history of splenectomy. PSYCHIATRIC: No history of depression or anxiety. ENDOCRINOLOGIC: No reports of sweating, cold or heat intolerance. No polyuria or polydipsia. - Constitutional Vitals: Temp Pulse Resp BP Pulse Ox 97.1 F L 89 18 151/81 96 11/18/17 09:53 11/18/17 09:53 11/18/17 09:53 11/18/17 09:53 11/18/17 09:53 General appearance: Present: A&O X 3 Exam: PHYSICAL EXAMINATION: GENERAL APPEARANCE: The patient is alert, oriented and in no acute distress. HEENT: Head is normocephalic. The sinuses are nontender. Pupils are equal and reactive. The nares are patent. Oropharynx clear without lesions. NECK: Supple without lymphadenopathy. HEART: Regular rate and rhythm. LUNGS: No crackles or wheezes are heard. ABDOMEN: Soft, nontender, nondistended with good bowel sounds heard. Inguinal area is normal. EXTREMITIES: 2+ pitting edema on BLE. NEUROLOGICAL: Gross nonfocal. SKIN: Warm and dry without any rash. Internal Med - H&P Results - Labs CBC & Chem 7: 11/18/17 10:16 11/18/17 10:16 - Assessment and plan (1) Acute respiratory failure with hypoxia Current Visit: Yes Status: Acute Assessment and plan: 67-year-old female with history of DVT/PE presented with acute onset of dyspnea. CTA revealed bilateral submassive PE with possible right heart strain. Personal Chef was consulted. Recommendation reviewed. - Patient currently hemodynamically stable. home Lasix was on hold per associate professor of biology recommendation. avoid aggressive fluid resuscitation. - Heparin drip started, will start Xarelto tomorrow. - Several times of recurrent PE/DVT in the past, patient will need lifelong anticoagulation, the decision will be deferred to oncology. - Pulmonology/oncology following. - Pending Doppler of bilateral lower extremity. (2) Acute pulmonary embolism Current Visit: Yes Status: Acute Assessment and plan: - Same as above. Qualifiers: Pulmonary embolism type: other Acute cor pulmonale presence: without acute cor pulmonale Qualified Code(s): I26.99 - Other pulmonary embolism without acute cor pulmonale (3) Heart block, AV Current Visit: No Status: Chronic Assessment and plan: - Status post biventricular pacemaker. (4) Hypertension Current Visit: No Status: Chronic Assessment and plan: BP controlled, continue home medication. Qualifiers: Hypertension type: essential hypertension Qualified Code(s): I10 - Essential (primary) hypertension (5) Elevated troponin Current Visit: Yes Status: Acute Assessment and plan: likely caused by IV straining, cycle troponin, telemetry monitoring. (6) Uterine cancer Current Visit: No Status: Chronic Assessment and plan: -oncology following. Qualifiers: Malignant neoplasm of body of uterus location: unspecified location Qualified Code(s): C54.9 - Malignant neoplasm of corpus uteri, unspecified (7) Lymphedema of both lower extremities Current Visit: No Status: Chronic (8) (HFpEF) heart failure with preserved ejection fraction Current Visit: No Status: Chronic Assessment and plan: - Patient euvolemic on physical exam, hold home Lasix for now per pulmonology recommendation. - Last echocardiogram in 2016 revealed EF 60-65%, mild diastolic dysfunction. - Pending TTE. - Time Spent With Patient Total time spent is greater than 50% in coordination of care (as documented) at patient's floor/unit and/or counseling patient: Greater than 35 minutes <Kelly Espinal - Last Filed: 11/18/17 15:41> Date of Encounter: 11/18/17 Internal Medicine - H&P: HPI History of present illness: Ms. Cai is a 67 year old female All Systems PM: A 10-system review of systems was performed and is negative for pertinent findings except as documented above in the HPI. - Constitutional Vitals: Temp Pulse Resp BP Pulse Ox 98.4 F 92 14 133/83 94 11/18/17 14:23 11/18/17 14:23 11/18/17 14:23 11/18/17 14:23 11/18/17 14:23 Internal Med - H&P Results - Labs CBC & Chem 7: 11/18/17 10:16 11/18/17 10:16 - Attending Attestation Examined the patient, reviewed the note. Doppler venous ultrasound of both lower extremities ordered. Continue IV heparin and plan for xarelto upon discharge. Will also consult oncologist. Patient denies any trauma or long distance travel but has family history of blood clot in her father. - Assessment and plan (1) Heart block, AV Current Visit: No Status: Chronic (2) Hypertension Current Visit: No Status: Chronic Qualifiers: Hypertension type: essential hypertension Qualified Code(s): I10 - Essential (primary) hypertension (3) Elevated troponin Current Visit: Yes Status: Acute (4) Uterine cancer Current Visit: No Status: Chronic Qualifiers: Malignant neoplasm of body of uterus location: unspecified location Qualified Code(s): C54.9 - Malignant neoplasm of corpus uteri, unspecified (5) Lymphedema of both lower extremities Current Visit: No Status: Chronic (6) Acute pulmonary embolism Current Visit: Yes Status: Acute Qualifiers: Pulmonary embolism type: other Acute cor pulmonale presence: without acute cor pulmonale Qualified Code(s): I26.99 - Other pulmonary embolism without acute cor pulmonale (7) Acute respiratory failure with hypoxia Current Visit: Yes Status: Acute (8) (HFpEF) heart failure with preserved ejection fraction Current Visit: No Status: Chronic - Time Spent With Patient Total time spent is greater than 50% in coordination of care (as documented) at patient's floor/unit and/or counseling patient:
[2017-11-18 20:24] LABS: Activated Partial Thrombo Time 146.7 Seconds (26.0-36.0)
[2017-11-18 20:30] LABS: Heparin anti-factor XA UFH 1.12 IU/mL (0.30-0.70)
[2017-11-18] MEDS: traZODone 50 MG TABLET PO SCH (21:28)
[2017-11-19 03:45] LABS: Basophils % 0.3 %; Eosinophils # 0.1 K/mcL (0.0-0.6); Eosinophils % 1.6 %; Hematocrit 40.4 % (35.3-44.9); Immature Granulocytes % 0.1 % (0-4); Lymphocytes # 2.4 K/mcL (0.6-4.6); Lymphocytes % 27.7 %; Mean Corpuscular HGB Conc 32.2 g/dL (31.6-35.5); Mean Corpuscular Hemoglobin 30.7 pg (28.0-33.3); Mean Corpuscular Volume 95.3 fL (83.0-100.0); Mean Platelet Volume 11.2 fL (9.4-12.4); Monocytes # 0.8 K/mcL (0.0-1.3); Monocytes % 9.4 %; Neutrophils # 5.2 K/mcL (1.6-8.9); Platelet Count 180 K/mcL (140-400); Red Blood Count 4.24 M/mcL (3.82-4.97); Red Cell Distribution Width 13.8 % (11.5-14.5); Segmented Neutrophils % 60.9 %
[2017-11-19 04:00] LABS: BUN/Creatinine Ratio 33 (6-26); Blood Urea Nitrogen 21 mg/dL (8-23); Calcium 8.5 mg/dL (8.6-10.3); Carbon Dioxide 26 mEq/L (23-29); Chloride 106 mEq/L (98-107); Glucose 110 mg/dL (70-105); Osmolality,Calculated 294 (280-300); Potassium 3.8 mEq/L (3.5-5.1); Sodium 140 mEq/L (136-145); eGFR For African Americans > 60 (> 60); eGFR For Non-African Americans > 60 (> 60)
[2017-11-19] MEDS: Heparin 25,000 UNIT/500 ML D5W 25,000 UNIT/500 ML BAG IVC SCH ×2 (04:30→21:32)
--- NOTE | 2017-11-19 07:10 | Pulmonology Progress Note ---
Date of Encounter: 11/19/17 Time of Encounter: 07:10 Assessment and Plan (1) Acute pulmonary embolism Current Visit: Yes Status: Acute Acute recurrent pulmonary embolus Agree with continuation of heparin Defer to primary medicine service or hematology for long-term anticoagulation choice she has been well maintained on Noac (Xarelto) in the past and that seems like a logical choice - in addition I suspect that with the recurrence of her VTE that she will require lifelong anticoagulation Echocardiogram pending she had evidence of right heart strain on CTA but has remained hemodynamically stable If there is evidence of right heart strain on echocardiogram. Think the management would not change much acutely but she would need repeat echocardiogram in 3-6 months Lower extremity duplex negative for DVT Qualifiers: Pulmonary embolism type: other Acute cor pulmonale presence: without acute cor pulmonale Qualified Code(s): I26.99 - Other pulmonary embolism without acute cor pulmonale (2) Acute respiratory failure with hypoxia Current Visit: Yes Status: Acute This is secondary to pulmonary embolus and hydrostatic pulmonary edema from heart failure Continue supplemental oxygen to keep saturation greater than 88% 90 around 92-94 % (3) (HFpEF) heart failure with preserved ejection fraction Current Visit: No Status: Chronic Patient remains volume overloaded and I think it is safe to reintroduce her diuretic with goal diuresis -500 mL to 1 L over the next 24-48 hours Subjective Principal diagnosis: Pulmonary embolus Interval history: The patient has been hemodynamically stable overnight. She is still very short of breath however and has had difficulty getting up out of bed and going to the bathroom she has a bedside commode but feels like it is too tall for her to sit on this is been on point of consternation and discomfort. Objective PUL Vital signs: Last Vital Signs Temp 98.2 F 11/19/17 03:28 Pulse 84 11/19/17 03:28 Resp 18 11/19/17 03:28 BP 108/69 11/19/17 03:28 Pulse Ox 95 11/19/17 03:28 General appearance: no acute distress Effort: mildly labored Auscultation: bilateral: diminished breath sounds, rales Cardiovascular: regular rate and rhythm Gastrointestinal: normoactive bowel sounds Extremities: edema normal mental status, non-focal exam Results - Laboratory Findings CBC and BMP: 11/19/17 03:21 11/19/17 03:21 PT/INR, D-dimer PT 12.3 Seconds (9.4-12.1) H 11/18/17 10:16 Abnormal lab findings: Abnormal lab results PT 12.3 Seconds (9.4-12.1) H 11/18/17 10:16 APTT 81.3 Seconds (26.0-36.0) H 11/19/17 03:21 Heparin Anti-Xa, Unfract 1.12 IU/mL (0.30-0.70) H* 11/18/17 19:39 BUN/Creatinine Ratio 33 (6-26) H 11/19/17 03:21 Glucose 110 mg/dL (70-105) H 11/19/17 03:21 Calcium 8.5 mg/dL (8.6-10.3) L 11/19/17 03:21 Troponin I 0.06 ng/mL (< 0.04) H* 11/18/17 10:16 B-Natriuretic Peptide 217 pg/mL (Less than 100) H 11/18/17 10:16 - Diagnostic Findings U/S of Legs: report reviewed - Clinical Findings Intake & Output: Intake & Output 11/18/17 11/18/17 11/19/17 15:59 23:59 07:59 Intake Total 247 / 247 253 / 253 Balance 247 / 247 253 / 253 Weight 142 kg 140.9 kg Consult Discharge Plan - Plan Referrals: Opal Bolden MD [Primary Care Provider] - 11/25/17 10:30 am (Rika David will be your provider for this appointment due to your primary physician being out of office. )
[2017-11-19] MEDS: Multivit/Ca/Min/Fe/FA 1 TAB TABLET PO SCH (08:58)
[2017-11-19] MEDS: Famotidine 20 MG TABLET PO SCH (08:58)
[2017-11-19] MEDS: Aspirin Enteric Coated 81 MG Tablet PO SCH (08:58)
[2017-11-19] MEDS: BIOTIN PO SCH (08:58)
[2017-11-19] MEDS: Magnesium Oxide 400 MG TABLET PO SCH (08:58)
[2017-11-19] MEDS: GLUCOSAMINE SULFATE PO SCH (08:58)
--- NOTE | 2017-11-19 14:22 | Internal Med Progress Note ---
Date of Encounter: 11/19/17 Time of Encounter: 14:19 - Assessment and plan (1) Acute pulmonary embolism Current Visit: Yes Status: Acute Assessment and plan: presented with worsening SOB. Chest CTA showed acute bilateral pulmonary emboli with evidence of right ventricular strain. Heparin drip started in ED. TTE with EF60%, mildly dilated right ventricle with normal systolic function and severe pulmonary hypertension. Hemodynamically stable, no hypotension or tachycardia. Evaluated by pulmonology who noted submassive pulmonary embolism. Evaluated by hematology who recommended lifelong Xarelto. Continue heparin drip for 48 hours then transition to Xarelto. Qualifiers: Pulmonary embolism type: other Acute cor pulmonale presence: without acute cor pulmonale Qualified Code(s): I26.99 - Other pulmonary embolism without acute cor pulmonale (2) Acute respiratory failure with hypoxia Current Visit: Yes Status: Acute Assessment and plan: presented with SOB and was found to be hypoxic. Does not wear O2 at home Chest CTA with bilateral pulmonary embolism noted above. Suspect resp failure multifactorial and secondary to pulmonary embolism, morbid obesity, severe pulmonary hypertension and diastolic heart failure. Continue treating pulmonary embolism with heparin drip and home Lasix resume. Wean oxygen as able. (3) (HFpEF) heart failure with preserved ejection fraction Current Visit: No Status: Chronic Assessment and plan: Diastolic dysfunction. TTE with EF 60%, normal left ventricular function, mild diastolic dysfunction and mildly dilated right ventricle. With lower extremity edema on exam but does not appear overtly overloaded. Home oral Lasix resumed. Strict I's and O's, daily weights (4) Heart block, AV Current Visit: No Status: Chronic Assessment and plan: per hx. S/p biventricular pacemaker. Monitor on tele (5) Hypertension Current Visit: No Status: Chronic Assessment and plan: BP controlled, continue home medication. Qualifiers: Hypertension type: essential hypertension Qualified Code(s): I10 - Essential (primary) hypertension (6) Elevated troponin Current Visit: Yes Status: Acute Assessment and plan: likely caused by pulmonary embolism, RV straining. Cycle troponin, telemetry monitoring. (7) Uterine cancer Current Visit: No Status: Chronic Assessment and plan: per hx. S/p total hysterectomy. Follow-up with oncology outpatient as previously planned Qualifiers: Malignant neoplasm of body of uterus location: unspecified location Qualified Code(s): C54.9 - Malignant neoplasm of corpus uteri, unspecified (8) Lymphedema of both lower extremities Current Visit: No Status: Chronic Assessment and plan: per hx. bilateral lower extremity venous Dopplers negative for DVT. Encourage elevation, compression wraps. (9) DVT prophylaxis Current Visit: No Status: Acute Assessment and plan: heparin gtt - Time Spent With Patient Total time spent is greater than 50% in coordination of care (as documented) at patient's floor/unit and/or counseling patient: - Subjective Interval history: Seen and examined at bedside. Patient is new to me, information obtained from chart review and patient report. Appears uncomfortable laying in bed. Denies chest pain has some shortness of breath but overall complains of general weakness and malaise. Discussed the possibility of transfer to [facility] or another hospital if Echo showed right heart strain. She is agreeable to transfer if needed. No family at that site for update - Constitutional Vitals: Temp Pulse Resp BP Pulse Ox 97.9 F 80 17 112/74 97 11/19/17 11:20 11/19/17 11:20 11/19/17 11:20 11/19/17 11:20 11/19/17 11:20 General appearance: Present: mild distress (appears uncomfortable ), A&O X 3, morbidly obese - Head Head exam: Present: atraumatic, normocephalic - Eye Eye exam: Present: PERRL, conjuntiva pink, sclera anicteric Pupils: Present: PERRL - Neck Neck exam general surgery: Present: supple, trachea midline. Absent: lymphadenopathy - Respiratory Respiratory exam: Present: CTAB. Absent: accessory muscle use, rales, rhonchi, wheezes - Cardiovascular Cardiovascular exam: Present: RRR, +S1, +S2. Absent: diastolic murmur, gallop, rubs, systolic murmur - GI/Abdominal GI/Abdominal exam: Present: normal bowel sounds, soft, no peritoneal signs. Absent: distended, tenderness - Extremities Exam Extremities exam: Present: pedal edema, warm, radial pulses palpable and symmetrical. Absent: calf tenderness, cyanotic - Neurological Exam Neurological exam: Present: CN II-XII intact, oriented X3, no focal deficits. Absent: pronater drift, facial droop, speech deficit - Skin Skin exam: Present: dry, intact Internal Medicine: Result - Labs CBC & Chem 7: 05/18/18 03:21 11/19/17 03:21 Labs: Short CBC 11/19/17 Range/Units 03:21 WBC 8.6 (4.3-11.1) K/mcL Hgb 13.0 D (11.5-15.4) g/dL Hct 40.4 (35.3-44.9) % Plt Count 180 (140-400) K/mcL Neutrophils # 5.2 (1.6-8.9) K/mcL BMP 11/19/17 03:21 Sodium 140 Potassium 3.8 Chloride 106 Carbon Dioxide 26 BUN 21 Creatinine 0.63 Glucose 110 H Calcium 8.5 L - ABG Interpretation ABG results: PT/INR, D-dimer PT 12.3 Seconds (9.4-12.1) H 11/18/17 10:16 Consult Discharge Plan - Plan Referrals: Opal Bolden MD [Primary Care Provider] - 11/25/17 10:30 am (Rika David will be your provider for this appointment due to your primary physician being out of office. )
[2017-11-19] MEDS: Furosemide 40 MG TABLET PO SCH (15:00)
--- NOTE | 2017-11-19 16:58 | Oncology Inp Consult Note ---
<Rika Huerta - Last Filed: 11/19/17 16:54> Date of Encounter: 11/19/17 Time of Encounter: 10:30 Assessment and Plan (1) Acute pulmonary embolism Status: Acute Assessment and plan: CTA reveals Bilateral pulmonary emboli with evidence for right ventricular strain. Echo reveals LVEF 60-65%, mild left ventricular diastolic dysfunction, mildly dilated right ventricle with normal systolic dysfunction, severe pulmonary hypertension. She remains hemodynamically stable. BLE venous doppler has been performed-results are still pending. Prior thrombophilia workup has been negative She has been on Xarelto in the past and tolerated well, her kidney function is normal at this time. Would recommend transition to Xarelto 15 mg twice daily with food for 21 days followed by 20 mg once daily with food. Will keep on heparin gtt overnight at this time as patient remains SOB at times, transition to Xarelto per hospitalist team prior to discharge. Will enter in hospice social worker consult for insurance coverage information for xarelto. Would recommend indefinite anticoagulation in the setting of recurrent thrombosis with increased risk factors. PCP may continue to manage anticoagulation on an outpatient basis. Patient's VTE risk factors include morbid obesity, age and a family history of VTE in her mother although this was diagnosed in the setting of prolonged immobility due to chronic illness. Please refer to Dr. Hernadez's attestation below for additional details. Qualifiers: Pulmonary embolism type: other Acute cor pulmonale presence: without acute cor pulmonale Qualified Code(s): I26.99 - Other pulmonary embolism without acute cor pulmonale - Data of Consult Requesting Physician: Kelly Espinal Primary Care Provider: Opal Bolden, - Consult Narrative Reason for consult: Acute PE History of present illness: Ms. Cai is a 67 year old female with past medical history significant for DVT/ PE, uterine cancer treated with total hysterectomy in 2000, bradycardia status post pacemaker placement, CHF, and hypertension presented to the ED with 2 days of worsening shortness of breath. She denies any associated chest pain, cough, hematemesis, or palpitation. She does report bilateral edema but states this is chronic. She has had prior thrombophilia workup which has returned negative. CTA reveals Bilateral pulmonary emboli with evidence for right ventricular strain. Echo reveals LVEF 60-65%, mild left ventricular diastolic dysfunction, mildly dilated right ventricle with normal systolic dysfunction, severe pulmonary hypertension. Past Med Surg Social Fam HX - Past Medical History Medical history: cancer, CHF, DVT, GERD, hypertension, pulmonary embolus, other Psychiatric history: no psych history - Past Surgical History Surgical History: hysterectomy - Social History Smoking Status: Never smoker Smokeless Tobacco Status: No Alcohol use: none Drug use: none - Family History Mother Living Status: Still Living Hx Family Cardiac Disorders: Yes (A-Fib, Pacemaker) Father Living Status: Hx Family Cardiac Disorders: No Hx Family Respiratory Disorders: Yes Hx Family Cancer: Yes Hx Family Endocrine Disorder: Yes Medications and Allergies traZODone [TraZODone] 50 mg PO HS 07/24/15 [History] Furosemide [Lasix] 40 mg PO DAILY PRN 08/16/15 [History] Potassium Chloride [K-Tab ER] 20 meq PO BID PRN 11/14/15 [History] Albuterol Sulfate [Albuterol Inhaler] 1 puff IH PRN PRN 02/14/16 [History] Ranitidine HCl [Acid Programmer] 150 mg PO DAILY 05/13/16 [History] Aspirin Enteric Coated [Aspirin EC] 81 mg PO DAILY 06/24/16 [History] Biotin 3 mg PO DAILY 11/18/17 [History] Glucosamine Sulfate Dipot Chlr [Glucosamine] 2,000 mg PO DAILY 11/18/17 [History ] Losartan Potassium [Cozaar] 100 mg PO DAILY 11/18/17 [History] Magnesium Oxide [Magnesium] 400 mg PO DAILY 11/18/17 [History] Meloxicam 7.5 mg PO DAILY 11/18/17 [History] Multivitamin [One Daily Essential] 1 tab PO DAILY 11/18/17 [History] Tramadol HCl [Ultram] 50 mg PO HS PRN 11/18/17 [History] Doxycycline 100 mg PO BID #10 capsule 11/22/17 [Rx] Rivaroxaban [Xarelto] 1 dose PO AD 30 Days pack 11/22/17 [Rx] 3 Allergy/AdvReac Type Severity Reaction Status Date / Time lisinopril Allergy Unknown Cough Verified 11/18/17 11:28 codeine Allergy Hallucinati Verified 11/18/17 11:28 ng Penicillins Allergy Hallucinati Verified 11/18/17 11:28 ng amlodipine AdvReac See Verified 11/18/17 11:28 Comments Constitutional: Present: fatigue, weakness. Absent: chills, fever(s) Eyes: Absent: change in vision Nose, mouth and throat: Absent: dysphagia Cardiovascular: Absent: chest pain, irregular heart rhythm, palpitations Respiratory: Present: cough, dyspnea. Absent: hemoptysis, pain on inspiration Gastrointestinal: Absent: abdominal pain, hematochezia, melena, nausea, vomiting Genitourinary: Absent: dysuria, hematuria Musculoskeletal: Present: muscle weakness Integumentary: Absent: wounds Neurological: Absent: focal weakness, frequent falls Hematologic/Lymphatic: Present: as per HPI Oncology - Exam - Constitutional Vitals: Temp Pulse Resp BP Pulse Ox 97.9 F 79 18 119/69 97 11/19/17 15:23 11/19/17 15:23 11/19/17 15:23 11/19/17 15:23 11/19/17 15:23 General appearance: morbidly obese, no acute distress, no febrile - Head Head exam: Present: atraumatic - ENT ENT exam: Present: mucous membranes moist - Respiratory Respiratory exam: Present: decreased breath sounds, CTAB. Absent: respiratory distress - Cardiovascular Cardiovascular exam: Present: RRR, +S1, +S2 - GI/Abdominal GI/Abdominal exam: Present: normal bowel sounds, soft. Absent: tenderness - Extremities Exam Extremities exam: Present: pedal edema Additional comments: report intermittent bilateral calf tenderness - Neurological Exam Neurological exam: Present: alert, oriented X3, no focal deficits, strengths equal and symetr throughout - Psychiatric Psychiatric exam: Present: normal affect, normal mood - Skin Skin exam: Present: dry, intact, normal color, warm Oncology - Results Labs: Short CBC 11/19/17 Range/Units 03:21 WBC 8.6 (4.3-11.1) K/mcL Hgb 13.0 D (11.5-15.4) g/dL Hct 40.4 (35.3-44.9) % Plt Count 180 (140-400) K/mcL Neutrophils # 5.2 (1.6-8.9) K/mcL BMP 11/19/17 03:21 Sodium 140 Potassium 3.8 Chloride 106 Carbon Dioxide 26 BUN 21 Creatinine 0.63 Glucose 110 H Calcium 8.5 L Cardiac Enzymes 11/19/17 Range/Units 14:39 Troponin I 0.03 (< 0.04) ng/mL Consult Discharge Plan - Plan Instructions: Doxycycline (By mouth), Rivaroxaban (By mouth), Pulmonary Embolism (DC), Using Oxygen at Home (DC) Referrals: Gomez Tobin MD [Partnered Physician] - (Please call for follow-up appointment within 2-3 weeks, Jeff a pulmonary will be calling you with an appointment at home :)) Opal Bolden MD [Primary Care Provider] - 11/25/17 10:30 am (Rika David will be your provider for this appointment due to your primary physician being out of office. ) Prescriptions: Doxycycline 100 mg PO BID #10 capsule Rivaroxaban [Xarelto] 1 dose PO AD 30 Days pack <SatyaRocco - Last Filed: 11/30/17 08:50> Date of Encounter: 11/19/17 - Data of Consult Requesting Physician: Kelly Espinal Primary Care Provider: Opal Bolden, - Consult Narrative History of present illness: Ms. Cai is a 67 year old female Oncology - Exam - Constitutional Vitals: Temp Pulse Resp BP Pulse Ox 98.0 F 80 14 107/67 96 11/22/17 11:31 11/22/17 11:31 11/22/17 11:31 11/22/17 11:31 11/22/17 12:53 - Attending Attestation Seen and examined patient and agree with assessment and plan. She has PE in the past. Recommend indefinite anticoagulation with rivaroxaban which she tolerated in the past. Likely risk factor is her obesity and sedentary state. Hypercoag w/u in the past was negative.
[2017-11-19] MEDS: traZODone 50 MG TABLET PO SCH (21:57)
[2017-11-20 04:40] LABS: Hematocrit 40.1 % (35.3-44.9); Hemoglobin 12.7 g/dL (11.5-15.4); Mean Corpuscular HGB Conc 31.7 g/dL (31.6-35.5); Mean Corpuscular Hemoglobin 30.5 pg (28.0-33.3); Mean Corpuscular Volume 96.4 fL (83.0-100.0); Mean Platelet Volume 11.6 fL (9.4-12.4); Platelet Count 194 K/mcL (140-400); Red Blood Count 4.16 M/mcL (3.82-4.97); Red Cell Distribution Width 13.7 % (11.5-14.5)
[2017-11-20 05:00] LABS: BUN/Creatinine Ratio 30 (6-26); Blood Urea Nitrogen 26 mg/dL (8-23); Carbon Dioxide 27 mEq/L (23-29); Chloride 103 mEq/L (98-107); Potassium 3.7 mEq/L (3.5-5.1); Sodium 138 mEq/L (136-145)
[2017-11-20 05:01] LABS: Calcium 8.7 mg/dL (8.6-10.3); Glucose 99 mg/dL (70-105); Osmolality,Calculated 291 (280-300); eGFR For African Americans > 60 (> 60); eGFR For Non-African Americans > 60 (> 60)
[2017-11-20] MEDS: Aspirin Enteric Coated 81 MG Tablet PO SCH (08:39)
[2017-11-20] MEDS: Magnesium Oxide 400 MG TABLET PO SCH (08:39)
[2017-11-20] MEDS: Multivit/Ca/Min/Fe/FA 1 TAB TABLET PO SCH (08:39)
[2017-11-20] MEDS: Furosemide 40 MG TABLET PO SCH (08:39)
[2017-11-20] MEDS: Famotidine 20 MG TABLET PO SCH (08:39)
[2017-11-20] MEDS: BIOTIN PO SCH (08:40)
[2017-11-20] MEDS: GLUCOSAMINE SULFATE PO SCH (08:40)
[2017-11-20] MEDS: Heparin 25,000 UNIT/500 ML D5W 25,000 UNIT/500 ML BAG IVC SCH (08:40)
--- NOTE | 2017-11-20 13:40 | Internal Med Progress Note ---
Date of Encounter: 11/20/17 Time of Encounter: 13:44 - Assessment and plan (1) Acute pulmonary embolism Current Visit: Yes Status: Acute Assessment and plan: presented with worsening SOB. Chest CTA showed acute bilateral pulmonary emboli with evidence of right ventricular strain. Heparin drip started in ED. TTE with EF60%, mildly dilated right ventricle with normal systolic function and severe pulmonary hypertension. Hemodynamically stable, no hypotension or tachycardia. Evaluated by pulmonology who noted submassive pulmonary embolism. Evaluated by hematology who recommended lifelong Xarelto. She was anticoagulated with IV heparin for 48 hours, transition to Xarelto on 11/20. Will need repeat echocardiogram and 3-6 months Qualifiers: Pulmonary embolism type: other Acute cor pulmonale presence: without acute cor pulmonale Qualified Code(s): I26.99 - Other pulmonary embolism without acute cor pulmonale (2) Acute respiratory failure with hypoxia Current Visit: Yes Status: Acute Assessment and plan: presented with SOB and was found to be hypoxic. Does not wear O2 at home Chest CTA with bilateral pulmonary embolism noted above. Suspect resp failure multifactorial and secondary to pulmonary embolism, morbid obesity, severe pulmonary hypertension and diastolic heart failure. Continue treating pulmonary embolism. Wean oxygen as able. (3) (HFpEF) heart failure with preserved ejection fraction Current Visit: No Status: Chronic Assessment and plan: Diastolic dysfunction. TTE with EF 60%, normal left ventricular function, mild diastolic dysfunction and mildly dilated right ventricle. With lower extremity edema on exam but does not appear overtly overloaded. Home oral Lasix resumed. Strict I's and O's, daily weights (4) Heart block, AV Current Visit: No Status: Chronic Assessment and plan: per hx. S/p biventricular pacemaker. Monitor on tele (5) Hypertension Current Visit: No Status: Chronic Assessment and plan: BP controlled, continue home medication. Qualifiers: Hypertension type: essential hypertension Qualified Code(s): I10 - Essential (primary) hypertension (6) Elevated troponin Current Visit: Yes Status: Acute Assessment and plan: likely caused by pulmonary embolism, RV straining. Cycle troponin, telemetry monitoring. (7) Uterine cancer Current Visit: No Status: Chronic Assessment and plan: per hx. S/p total hysterectomy. Follow-up with oncology outpatient as previously planned Qualifiers: Malignant neoplasm of body of uterus location: unspecified location Qualified Code(s): C54.9 - Malignant neoplasm of corpus uteri, unspecified (8) Lymphedema of both lower extremities Current Visit: No Status: Chronic Assessment and plan: per hx. bilateral lower extremity venous Dopplers negative for DVT. Appears to have mild cellulitic appearance with erythema, warmth and tenderness. Start Doxycycline (PCN allergy). Encourage elevation, compression wraps. (9) DVT prophylaxis Current Visit: No Status: Acute Assessment and plan: xarelto - Time Spent With Patient Total time spent is greater than 50% in coordination of care (as documented) at patient's floor/unit and/or counseling patient: - Subjective Interval history: Seen and examined at bedside; sitting up in chair at bedside. Says she still gets short of breath with exertion but overall is better. No chest pain. No shortness of breath at rest. Says swelling in legs are a little better than normal. - Constitutional Vitals: Temp Pulse Resp BP Pulse Ox 98.1 F 73 18 93/62 96 11/20/17 11:20 11/20/17 11:20 11/20/17 11:20 11/20/17 11:20 11/20/17 11:20 General appearance: Present: A&O X 3, morbidly obese - Head Head exam: Present: atraumatic, normocephalic - Eye Eye exam: Present: PERRL, conjuntiva pink, sclera anicteric Pupils: Present: PERRL - Neck Neck exam general surgery: Present: supple, trachea midline. Absent: lymphadenopathy - Respiratory Respiratory exam: Present: CTAB. Absent: accessory muscle use, rales, rhonchi, wheezes - Cardiovascular Cardiovascular exam: Present: RRR, +S1, +S2. Absent: diastolic murmur, gallop, rubs, systolic murmur - GI/Abdominal GI/Abdominal exam: Present: normal bowel sounds, soft, no peritoneal signs. Absent: distended, tenderness - Extremities Exam Extremities exam: Present: pedal edema, warm, radial pulses palpable and symmetrical. Absent: calf tenderness, cyanotic Additional comments: Bilateral lower extremity edema with moderate pitting edema and erythema, warmth and tenderness. - Neurological Exam Neurological exam: Present: CN II-XII intact, oriented X3, no focal deficits. Absent: pronater drift, facial droop, speech deficit - Skin Skin exam: Present: dry, intact Internal Medicine: Result - Labs CBC & Chem 7: 11/20/17 03:03 11/20/17 03:03 Labs: Short CBC 11/20/17 Range/Units 03:03 WBC 11.2 H (4.3-11.1) K/mcL Hgb 12.7 (11.5-15.4) g/dL Hct 40.1 (35.3-44.9) % Plt Count 194 (140-400) K/mcL BMP 11/20/17 03:03 Sodium 138 Potassium 3.7 Chloride 103 Carbon Dioxide 27 BUN 26 H Creatinine 0.87 Glucose 99 Calcium 8.7 Cardiac Enzymes 11/19/17 11/19/17 Range/Units 14:39 19:03 Troponin I 0.03 0.03 (< 0.04) ng/mL - ABG Interpretation ABG results: PT/INR, D-dimer PT 12.3 Seconds (9.4-12.1) H 11/18/17 10:16 Consult Discharge Plan - Plan Referrals: Opal Bolden MD [Primary Care Provider] - 11/25/17 10:30 am (Rika David will be your provider for this appointment due to your primary physician being out of office. )
[2017-11-20] MEDS: *HR* Rivaroxaban 15 MG TABLET PO SCH ×2 (14:25→21:05)
[2017-11-20] MEDS: Doxycycline 100 MG in 0.9 % Sodium Chloride Mini Bag 100 ML IVPB SCH (17:31)
[2017-11-20] MEDS: traZODone 50 MG TABLET PO SCH (21:05)
[2017-11-21 04:22] LABS: Hemoglobin 11.7 g/dL (11.5-15.4); Mean Corpuscular HGB Conc 31.6 g/dL (31.6-35.5); Mean Corpuscular Hemoglobin 30.6 pg (28.0-33.3); Mean Corpuscular Volume 96.9 fL (83.0-100.0); Mean Platelet Volume 11.2 fL (9.4-12.4); Platelet Count 177 K/mcL (140-400); Red Blood Count 3.82 M/mcL (3.82-4.97); Red Cell Distribution Width 13.6 % (11.5-14.5)
[2017-11-21 04:43] LABS: BUN/Creatinine Ratio 36 (6-26); Blood Urea Nitrogen 31 mg/dL (8-23); Calcium 8.7 mg/dL (8.6-10.3); Carbon Dioxide 27 mEq/L (23-29); Chloride 105 mEq/L (98-107); Glucose 102 mg/dL (70-105); Osmolality,Calculated 293 (280-300); Sodium 138 mEq/L (136-145); eGFR For African Americans > 60 (> 60); eGFR For Non-African Americans > 60 (> 60)
[2017-11-21] MEDS: Doxycycline 100 MG in 0.9 % Sodium Chloride Mini Bag 100 ML IVPB SCH ×2 (05:57→17:17)
[2017-11-21] MEDS: Magnesium Oxide 400 MG TABLET PO SCH (09:03)
[2017-11-21] MEDS: Famotidine 20 MG TABLET PO SCH (09:03)
[2017-11-21] MEDS: Furosemide 40 MG TABLET PO SCH (09:04)
[2017-11-21] MEDS: *HR* Rivaroxaban 15 MG TABLET PO SCH ×2 (09:04→21:33)
[2017-11-21] MEDS: Aspirin Enteric Coated 81 MG Tablet PO SCH (09:04)
[2017-11-21] MEDS: Multivit/Ca/Min/Fe/FA 1 TAB TABLET PO SCH (09:04)
--- NOTE | 2017-11-21 09:21 | Internal Med Progress Note ---
Date of Encounter: 11/21/17 Time of Encounter: 09:19 - Assessment and plan (1) Acute pulmonary embolism Current Visit: Yes Status: Acute Assessment and plan: presented with worsening SOB. Chest CTA showed acute bilateral pulmonary emboli with evidence of right ventricular strain. Heparin drip started in ED. TTE with EF60%, mildly dilated right ventricle with normal systolic function and severe pulmonary hypertension. Hemodynamically stable, no hypotension or tachycardia. Evaluated by pulmonology who noted submassive pulmonary embolism. Evaluated by hematology who recommended lifelong Xarelto. She was anticoagulated with IV heparin for 48 hours, transition to Xarelto on 11/20. Will need repeat echocardiogram and 3-6 months Qualifiers: Pulmonary embolism type: other Acute cor pulmonale presence: without acute cor pulmonale Qualified Code(s): I26.99 - Other pulmonary embolism without acute cor pulmonale (2) Acute respiratory failure with hypoxia Current Visit: Yes Status: Acute Assessment and plan: presented with SOB and was found to be hypoxic. Does not wear O2 at home Chest CTA with bilateral pulmonary embolism noted above. Suspect resp failure multifactorial and secondary to pulmonary embolism, morbid obesity, severe pulmonary hypertension and diastolic heart failure. Continue treating pulmonary embolism. Wean oxygen as able. Down to 3 L on 11/21 exam. Strongly encouraged ambulation and aggressive IS (3) (HFpEF) heart failure with preserved ejection fraction Current Visit: No Status: Chronic Assessment and plan: Diastolic dysfunction. TTE with EF 60%, normal left ventricular function, mild diastolic dysfunction and mildly dilated right ventricle. With lower extremity edema on exam but does not appear overtly overloaded. Home oral Lasix resumed. Strict I's and O's, daily weights (4) Heart block, AV Current Visit: No Status: Chronic Assessment and plan: per hx. S/p biventricular pacemaker. Monitor on tele (5) Hypertension Current Visit: No Status: Chronic Assessment and plan: BP controlled, continue home medication. Qualifiers: Hypertension type: essential hypertension Qualified Code(s): I10 - Essential (primary) hypertension (6) Elevated troponin Current Visit: Yes Status: Acute Assessment and plan: likely caused by pulmonary embolism, RV straining. Cycle troponin, telemetry monitoring. (7) Uterine cancer Current Visit: No Status: Chronic Assessment and plan: per hx. S/p total hysterectomy. Follow-up with oncology outpatient as previously planned Qualifiers: Malignant neoplasm of body of uterus location: unspecified location Qualified Code(s): C54.9 - Malignant neoplasm of corpus uteri, unspecified (8) Lymphedema of both lower extremities Current Visit: No Status: Chronic Assessment and plan: per hx. bilateral lower extremity venous Dopplers negative for DVT. Appears to have mild cellulitic appearance with erythema, warmth and tenderness. Start Doxycycline (PCN allergy). Encourage elevation, compression wraps. Swelling and cellulitic appearance improved on 11/29 exam (9) DVT prophylaxis Current Visit: No Status: Acute Assessment and plan: xarelto - Time Spent With Patient Total time spent is greater than 50% in coordination of care (as documented) at patient's floor/unit and/or counseling patient: - Subjective Interval history: Seen and examined at bedside; sitting up in chair at bedside. She had uneventful night. No chest pain or shortness of breath but she does complain of being tired and weak. She thinks swelling and erythema to lower extremities is improved. - Constitutional Vitals: Temp Pulse Resp BP Pulse Ox 98.0 F 79 18 104/70 97 11/21/17 07:14 11/21/17 07:14 11/21/17 07:14 11/21/17 07:14 11/21/17 09:00 General appearance: Present: A&O X 3, morbidly obese - Head Head exam: Present: atraumatic, normocephalic - Eye Eye exam: Present: PERRL, conjuntiva pink, sclera anicteric Pupils: Present: PERRL - Neck Neck exam general surgery: Present: supple, trachea midline. Absent: lymphadenopathy - Respiratory Respiratory exam: Present: CTAB. Absent: accessory muscle use, rales, rhonchi, wheezes - Cardiovascular Cardiovascular exam: Present: RRR, +S1, +S2. Absent: diastolic murmur, gallop, rubs, systolic murmur - GI/Abdominal GI/Abdominal exam: Present: normal bowel sounds, soft, no peritoneal signs. Absent: distended, tenderness - Extremities Exam Extremities exam: Present: pedal edema (I lateral lower extremity edema and erythema improved from yesterday's exam. Right greater than left.), warm, radial pulses palpable and symmetrical. Absent: calf tenderness, cyanotic - Neurological Exam Neurological exam: Present: CN II-XII intact, oriented X3, no focal deficits. Absent: pronater drift, facial droop, speech deficit - Skin Skin exam: Present: dry, intact Internal Medicine: Result - Labs CBC & Chem 7: 11/21/17 03:42 11/21/17 03:42 Labs: Short CBC 11/21/17 Range/Units 03:42 WBC 9.1 (4.3-11.1) K/mcL Hgb 11.7 (11.5-15.4) g/dL Hct 37.0 (35.3-44.9) % Plt Count 177 (140-400) K/mcL BMP 11/21/17 03:42 Sodium 138 Potassium 4.0 Chloride 105 Carbon Dioxide 27 BUN 31 H Creatinine 0.87 Glucose 102 Calcium 8.7 - ABG Interpretation ABG results: PT/INR, D-dimer PT 12.3 Seconds (9.4-12.1) H 11/18/17 10:16 Consult Discharge Plan - Plan Referrals: Opal Bolden MD [Primary Care Provider] - 11/25/17 10:30 am (Rika David will be your provider for this appointment due to your primary physician being out of office. )
[2017-11-21] MEDS: traZODone 50 MG TABLET PO SCH (21:33)
[2017-11-22] MEDS: Doxycycline 100 MG in 0.9 % Sodium Chloride Mini Bag 100 ML IVPB SCH (05:57)
[2017-11-22 07:30] LABS: Hematocrit 38.2 % (35.3-44.9); Hemoglobin 12.3 g/dL (11.5-15.4); Mean Corpuscular HGB Conc 32.2 g/dL (31.6-35.5); Mean Corpuscular Hemoglobin 31.8 pg (28.0-33.3); Mean Corpuscular Volume 98.7 fL (83.0-100.0); Mean Platelet Volume 11.6 fL (9.4-12.4); Platelet Count 189 K/mcL (140-400); Red Blood Count 3.87 M/mcL (3.82-4.97); Red Cell Distribution Width 13.8 % (11.5-14.5)
[2017-11-22 07:46] LABS: BUN/Creatinine Ratio 36 (6-26); Blood Urea Nitrogen 24 mg/dL (8-23); Calcium 8.7 mg/dL (8.6-10.3); Carbon Dioxide 24 mEq/L (23-29); Chloride 108 mEq/L (98-107); Glucose 94 mg/dL (70-105); Osmolality,Calculated 292 (280-300); Potassium 4.4 mEq/L (3.5-5.1); Sodium 139 mEq/L (136-145); eGFR For African Americans > 60 (> 60); eGFR For Non-African Americans > 60 (> 60)
[2017-11-22] MEDS: Famotidine 20 MG TABLET PO SCH (08:08)
[2017-11-22] MEDS: Magnesium Oxide 400 MG TABLET PO SCH (08:08)
[2017-11-22] MEDS: Aspirin Enteric Coated 81 MG Tablet PO SCH (08:08)
[2017-11-22] MEDS: *HR* Rivaroxaban 15 MG TABLET PO SCH (08:08)
[2017-11-22] MEDS: Furosemide 40 MG TABLET PO SCH (08:08)
[2017-11-22] MEDS: Multivit/Ca/Min/Fe/FA 1 TAB TABLET PO SCH (08:08)
[2017-11-22 11:33] VITALS: BP 107/67
--- NOTE | 2017-11-22 12:39 | Discharge Summary ---
- NOTES TO OUTPATIENT PROVIDER Notes to Outpatient Provider: Will need repeat echo in 3-6 months. Will also need continuation of Xarelto Orders not resulted at time of discharge: Pending orders 11/23/17 04:00 BMP [Basic Metabolic Panel] AM 0400 Complete Blood Count w/o Diff [HEME] AM 0400 11/24/17 04:00 BMP [Basic Metabolic Panel] AM 0400 Complete Blood Count w/o Diff [HEME] AM 0400 Date of Encounter: 11/22/17 Time of Encounter: 12:38 - Discharge Diagnosis (1) Acute pulmonary embolism Priority: Primary Status: Acute Assessment and Plan: presented with worsening SOB. Chest CTA showed acute bilateral pulmonary emboli with evidence of right ventricular strain. Heparin drip started in ED. TTE with EF60%, mildly dilated right ventricle with normal systolic function and severe pulmonary hypertension. Hemodynamically stable, no hypotension or tachycardia. Evaluated by pulmonology who noted submassive pulmonary embolism. Evaluated by hematology who recommended lifelong Xarelto. She was anticoagulated with IV heparin for 48 hourr and then transitioned to Xarelto. Will need repeat echocardiogram and 3-6 months Qualifiers: Pulmonary embolism type: other Acute cor pulmonale presence: without acute cor pulmonale Qualified Code(s): I26.99 - Other pulmonary embolism without acute cor pulmonale (2) Acute respiratory failure with hypoxia Priority: Primary Status: Acute Assessment and Plan: presented with SOB and was found to be hypoxic. Does not wear O2 at home Chest CTA with bilateral pulmonary embolism noted above. Suspect resp failure multifactorial and secondary to pulmonary embolism, morbid obesity, severe pulmonary hypertension and diastolic heart failure. Qualified for home oxygen. Follow-up with PCP outpatient. (3) (HFpEF) heart failure with preserved ejection fraction Priority: Primary Status: Chronic Assessment and Plan: Diastolic dysfunction. TTE with EF 60%, normal left ventricular function, mild diastolic dysfunction and mildly dilated right ventricle. With lower extremity edema on exam but does not appear overtly overloaded. Cont home lasix (4) Heart block, AV Priority: Secondary Status: Chronic Assessment and Plan: per hx. S/p biventricular pacemaker. (5) Hypertension Priority: Secondary Status: Chronic Assessment and Plan: BP controlled, continue home medication. Qualifiers: Hypertension type: essential hypertension Qualified Code(s): I10 - Essential (primary) hypertension (6) Elevated troponin Priority: Primary Status: Acute Assessment and Plan: likely caused by pulmonary embolism, RV straining. Troponin normalized. Asymptomatic, denied chest pain. Echocardiogram as noted above. Follow up outpatient with PCP. (7) Uterine cancer Priority: Secondary Status: Chronic Assessment and Plan: per hx. S/p total hysterectomy. Follow-up with oncology outpatient as previously planned Qualifiers: Malignant neoplasm of body of uterus location: unspecified location Qualified Code(s): C54.9 - Malignant neoplasm of corpus uteri, unspecified (8) Lymphedema of both lower extremities Priority: Primary Status: Chronic Assessment and Plan: per hx. bilateral lower extremity venous Dopplers negative for DVT. Appeared to have mild cellulitic appearance with erythema, warmth and tenderness. Symptoms improved with doxycycline. Continue for total course of 7 days. Encourage elevation, compression wraps. (9) Pulmonary hypertension Priority: Primary Status: Suspected Assessment and Plan: TTE with severe pulmonary hypertension. Will need outpatient follow-up with pulmonology. Hospital course: Please see assessment and plan for Hospital course Discharge discussed with: patient (Seen and examined at bedside. Patient says she still short of breath that is worse with exertion but overall improved and once to discharge home today. She did not qualify for home O2 which socially responsible investment adviser is assisting and arranging. Advised patient that she will to follow-up with ditch tender outpatient and also advised patient to not stop taking Xarelto that this is lifelong anticoagulation. She verbalizes understanding.) - Time Spent with Patient Total time spent providing and/or coordinating discharge services: - Discharge Medications Prescriptions: Doxycycline 100 mg PO BID #10 capsule Rivaroxaban [Xarelto] 1 dose PO AD 30 Days pack Home Medications: traZODone [TraZODone] 50 mg PO HS 07/24/15 [History] Furosemide [Lasix] 40 mg PO DAILY PRN 08/16/15 [History] Potassium Chloride [K-Tab ER] 20 meq PO BID PRN 11/14/15 [History] Albuterol Sulfate [Albuterol Inhaler] 1 puff IH PRN PRN 02/14/16 [History] Ranitidine HCl [Acid Fusion Analyst] 150 mg PO DAILY 05/13/16 [History] Aspirin Enteric Coated [Aspirin EC] 81 mg PO DAILY 06/24/16 [History] Biotin 3 mg PO DAILY 11/18/17 [History] Glucosamine Sulfate Dipot Chlr [Glucosamine] 2,000 mg PO DAILY 11/18/17 [History ] Losartan Potassium [Cozaar] 100 mg PO DAILY 11/18/17 [History] Magnesium Oxide [Magnesium] 400 mg PO DAILY 11/18/17 [History] Meloxicam 7.5 mg PO DAILY 11/18/17 [History] Multivitamin [One Daily Essential] 1 tab PO DAILY 11/18/17 [History] Tramadol HCl [Ultram] 50 mg PO HS PRN 11/18/17 [History] Doxycycline 100 mg PO BID #10 capsule 11/22/17 [Rx] Rivaroxaban [Xarelto] 1 dose PO AD 30 Days pack 11/22/17 [Rx] Allergies/Adverse Reactions: 3 Allergy/AdvReac Type Severity Reaction Status Date / Time lisinopril Allergy Unknown Cough Verified 11/18/17 11:28 codeine Allergy Hallucinati Verified 11/18/17 11:28 ng Penicillins Allergy Hallucinati Verified 11/18/17 11:28 ng amlodipine AdvReac See Verified 11/18/17 11:28 Comments Date of admission: 11/18/17 13:57 Primary care physician: Opal Bolden, Consults: 11/18/17 14:01 Consult to Oncology Hematology [CONS] Routine Consulting Provider: Fariha Purdy Reason for Consult: recurrent PE and Hx of uterine cancer Call Completed: Yes 11/19/17 17:18 Consult to Corporate Development Intern [CONS] Routine Reason for SW Consult: Good evening, Can you please help to Check pricing for Xarelto 15 mg twice daily with food for 21 days followed by 20 mg once daily with food. Thank you! Rika Discharging clinician: Khalida Cantor Anticipated date of discharge: 11/22/17 - Constitutional Vitals: Temp Pulse Resp BP Pulse Ox 98.0 F 80 14 107/67 95 11/22/17 11:31 11/22/17 11:31 11/22/17 11:31 11/22/17 11:31 11/22/17 11:31 General appearance: Present: A&O X 3, morbidly obese - Head Head exam: Present: atraumatic, normocephalic - Eye Eye exam: Present: PERRL, conjuntiva pink, sclera anicteric Pupils: Present: PERRL - Neck Neck exam general surgery: Present: supple, trachea midline. Absent: lymphadenopathy - Respiratory Respiratory exam: Present: CTAB. Absent: accessory muscle use, rales, rhonchi, wheezes - Cardiovascular Cardiovascular exam: Present: RRR, +S1, +S2. Absent: diastolic murmur, gallop, rubs, systolic murmur - GI/Abdominal GI/Abdominal exam: Present: normal bowel sounds, soft, no peritoneal signs. Absent: distended, tenderness - Extremities Exam Extremities exam: Present: pedal edema (Lower extreme swelling and erythema improved from yesterday's exam.), warm, radial pulses palpable and symmetrical. Absent: calf tenderness, cyanotic - Neurological Exam Neurological exam: Present: CN II-XII intact, oriented X3, no focal deficits. Absent: pronater drift, facial droop, speech deficit - Skin Skin exam: Present: dry, intact - Patient Status Disposition: Home, Self-Care Condition: Good Functional capacity at discharge: uses cane/walker Overall status at discharge: patient is back to baseline - Discharge Instructions Instructions: Rivaroxaban (By mouth), Pulmonary Embolism (DC), Using Oxygen at Home (DC), Doxycycline (By mouth) Follow Up With: Opal Bolden MD [Primary Care Provider] - 11/25/17 10:30 am (Rika David will be your provider for this appointment due to your primary physician being out of office. ) Gomez Tobin MD [Partnered Physician] - (Please call for follow-up appointment within 2-3 weeks) - Diet and Activity Activity: increase activity as tolerated Diet: advance to your usual diet
== END 2017-11-22 16:13 | disposition home or self-care (01) | DRG 175 ==
LOC: 3BNU 09:49 → EMEROO 09:49 → 3BNU 14:02
PROVIDERS: ADMIT General Practice; ATTEND General Practice